=== PATIENT | male | born 1950 | race Caucasian/White ===

== ENCOUNTER 2023-02-14 09:07 | Outpatient (CLI) | payer MEDICARE, SELFPAY ==
--- NOTE | ~2023-02-14 | CT_ITS ---
Noncontrast CT scan of the left shoulder CLINICAL HISTORY: Preoperative evaluation TECHNIQUE: Axial noncontrast imaging of the left shoulder was performed. Coronal oblique and sagittal oblique reformatted images were constructed. Dose reduction technique was used on this scan by [employer] automated exposure control and iterative reconstruction technique. The dose-length product (DLP) was 515.79 mGy-cm. Findings: No acute fracture or dislocation seen. There is severe glenohumeral joint osteoarthritis. T here is a large inferomedial humeral head osteophyte. There is diffuse glenohumeral joint space narro wing with reactive sclerotic change and small areas of subchondral cystic change. There is mild AC bertin int degenerative change. Visualized musculature is grossly intact about the shoulder girdle. No soft tissue mass or fluid jocelin ection evident. No significant joint effusion identified. IMPRESSION: Severe glenohumeral joint osteoarthritis, as detailed above. Mild AC joint degenerative change. Reviewed, dictated and finalized at location .
== END 2023-02-14 09:08 | disposition home or self-care (01) ==
LOC: ANHIMG 09:12
PROVIDERS: Visit Provider Orthopaedic Surgery
DX: M19.012 Primary osteoarthritis, left shoulder (principal)
CPT/HCPCS: 73200

== ENCOUNTER 2023-02-25 10:03 | Outpatient (CLI) | payer MEDICARE, SELFPAY ==
--- NOTE | 2023-02-25 10:51 | ECG_ITS ---
Measurements Intervals Carbon Rate: 54 P: 60 PA: 210 QRS: -12 QRSD: 117 T: 19 QT: 471 QTc: 449 Interpretive Statements SINUS BRADYCARDIA WITH FIRST DEGREE AV BLOCK INCOMPLETE RIGHT BUNDLE BRANCH BLOCK BASELINE ARTIFACT- I, II, III, AVL, AVF BORDERLINE ECG NO PREVIOUS ECG AVAILABLE FOR COMPARISON Electronically Signed On 02-25-2023 11:29:29 CDT by Clayton Bales D.O.
[2023-02-25 11:11] LABS: Basophils Percent Auto 0.7 % (0.2-1.2); Eosinophils Absolute Auto 0.2 K/mm3 (0-0.3); Eosinophils Percent Auto 3.3 % (0-4.4); Hematocrit 39.4 % (42.0-52.0); Hemoglobin 13.6 g/dL (14.0-18.0); Immature Granulocyte Absolute 0.02 K/mm3 (0.00-0.031); Immature Granulocyte Percent A 0.3 % (0-0.5); Lymphocytes Absolute Auto 1.24 K/mm3 (0.9-3.2); Lymphocytes Percent Auto 21.3 % (18.3-44.2); Mean Corpuscular HGB Conc 34.5 g/dl (32-36); Mean Corpuscular Hemoglobin 32.9 pg (26-34); Mean Corpuscular Volume 95.4 fl (80-100); Mean Platelet Volume 9.8 fl (7.4-10.4); Monocytes Absolute Auto 0.5 K/mm3 (0.1-0.6); Monocytes Percent Auto 8.2 % (2.6-8.5); Neutrophils Absolute Auto 3.9 K/mm3 (1.3-6.7); Neutrophils Percent Auto 66.2 % (45.5-73.1); Platelet Count Result 168 k/mm3 (150-375); Red Blood Count 4.13 M/mm3 (4.6-6.20); Red Cell Distribution Width 13.4 % (11.5-14.5); White Blood Count 5.8 K/mm3 (4.5-10.0)
[2023-02-25 11:21] LABS: Anion Gap 10 mmol/L (8-16); Blood Urea Nitrogen 19 mg/dL (9-20); Calcium 9.1 mg/dL (8.4-10.2); Carbon Dioxide 28 mmol/L (22-30); Chloride 103 mmol/L (98-107); Estimated Glomerular Filt Rate > 60; Glucose 159 mg/dL (65-110); Potassium 3.8 mmol/L (3.4-5.0); Sodium 141 mmol/L (137-145)
== END 2023-02-25 10:04 | disposition home or self-care (01) ==
PROVIDERS: Anesthesiology; Visit Provider Orthopaedic Surgery
DX: M19.012 Primary osteoarthritis, left shoulder (principal); E11.9 Type 2 diabetes mellitus without complications; I10 Essential (primary) hypertension; Z01.818 Encounter for other preprocedural examination; I45.10 Unspecified right bundle-branch block; I44.0 Atrioventricular block, first degree
CPT/HCPCS: 36415; 80048; 85025; 87081; 93005

== ENCOUNTER 2023-04-22 00:51 | Day surgery (SDC) | payer MEDICARE, SELFPAY ==
[2023-02-25 10:14] VITALS: BMI 36.2
--- NOTE | 2023-02-25 10:35 | PC.NURSE ---
Report to the Outpatient Waiting Room, entrance under the green pavilion located off [facility], at time __0830 on date _03/19/23 . Planned Procedure Time: __1030 . Time changes happen often and if your time is changed the preop area will call you the afternoon before. - You and your visitor will be asked to self-screen and do not enter if you have any COVID symptoms. - A mask is optional within the hospital at this time. Patients may have clear liquids (water, carbonated beverages, clear teas, apple juice) until 3 hours prior to surgery with a maximum of 20 ounces. - No food from midnight until time of surgery - Infants may have breast milk until 4 hours before surgery, infant formula 6 hours prior to surgery. - Children will be allowed to drink immediately following surgery. If applicable, please bring a bottle or sippy cup to assist with drinking. Juice, water, soda, and popsicles are readily available. For infants on formula, please bring formula the day of surgery. Pacifiers are allowed. Take the following medications with a SIP of water the morning of surgery: __ATENOLOL,LEVOTHYROXINE DO NOT STOP ANY OF YOUR OTHER PRESCRIPTION MEDICATIONS PRIOR TO SURGERY ?EXCEPT THE FOLLOWING Medications to discontinue per physician ____ASPIRIN 7 DAYS PRE OP PER DR ABRAHAM.LAST DOSE 03/11/23. ALL VITAMINS AND SUPPLEMENTS 3 DAYS PRE OP.LAST DOSE 03/15/23 Please no make-up, nail slovenian, hairspray, perfume, deodorant, or body powder the day of surgery. No jewelry (including any body piercings) or valuables the day of surgery, leave them at home. Please take a shower or bath the night before, or the morning of, surgery with an antibacterial soap. Wear comfortable, loose fitting clothing. Children are encouraged to wear pajamas. - Jewelry must be removed prior to entering the operating room. Rings and piercings that are not removed may be cut off. - The hospital will not accept responsibility for valuables. - Please leave all valuables, including medications, at home the day of surgery. If you are going home after surgery, a licensed regional driver must drive you home. - NO public transportation without another adult if you receive anesthesia. - We recommend that an adult stay with you for 24 hours following discharge. - We also recommend that you do not drive, make important decision, drink alcoholic beverages, or take any drugs that were not prescribed by your health care provider for at least 24 hours after your discharge time. For Pediatric surgeries, we recommend two adults accompany the child home. Follow any additional instructions given to you from your surgeon. If you or anyone in your household have experienced Covid symptoms in the past week, please notify your surgeon or the nurse liaison at the phone number below for possible testing. VERBAL AND WRITTEN instructions given to _PATIENT AND JOSUE and asked if any additional questions and then verbalized understanding. Patient advised to call surgeon office or pre surgery nurse liaison [phone] if any additional questions.
[2023-02-25 10:51] VITALS: BP 144/81; PULSE 58; RESP 18; TEMP 36.6; O2SAT 98
--- NOTE | 2023-04-15 09:35 | PC.NURSE ---
Report to the Outpatient Waiting Room, entrance under the green pavilion located off [facility], at time _1000 on date __04/22/23 . Planned Procedure Time: __1200 . Time changes happen often and if your time is changed the preop area will call you the afternoon before. - You and your visitor will be asked to self-screen and do not enter if you have any COVID symptoms. - A mask is optional within the hospital at this time. Patients may have clear liquids (water, carbonated beverages, clear teas, apple juice) until 3 hours prior to surgery with a maximum of 20 ounces. - No food from midnight until time of surgery - Infants may have breast milk until 4 hours before surgery, infant formula 6 hours prior to surgery. - Children will be allowed to drink immediately following surgery. If applicable, please bring a bottle or sippy cup to assist with drinking. Juice, water, soda, and popsicles are readily available. For infants on formula, please bring formula the day of surgery. Pacifiers are allowed. Take the following medications with a SIP of water the morning of surgery: __ATENOLOL,LEVOTHYROXINE DO NOT STOP ANY OF YOUR OTHER PRESCRIPTION MEDICATIONS PRIOR TO SURGERY ?EXCEPT THE FOLLOWING Medications to discontinue per physician ___ASPIRIN 7 DAYS PRE OP PER DR ABRAHAM.LAST DOSE 04/14/23. ALL VIT/SUPP 3 DAYS PRE OP.LAST DOSE 04/18/23 Please no make-up, nail sudanese, hairspray, perfume, deodorant, or body powder the day of surgery. No jewelry (including any body piercings) or valuables the day of surgery, leave them at home. Please take a shower or bath the night before, or the morning of, surgery with an antibacterial soap. Wear comfortable, loose fitting clothing. Children are encouraged to wear pajamas. - Jewelry must be removed prior to entering the operating room. Rings and piercings that are not removed may be cut off. - The hospital will not accept responsibility for valuables. - Please leave all valuables, including medications, at home the day of surgery. If you are going home after surgery, a licensed chair car driver must drive you home. - NO public transportation without another adult if you receive anesthesia. - We recommend that an adult stay with you for 24 hours following discharge. - We also recommend that you do not drive, make important decision, drink alcoholic beverages, or take any drugs that were not prescribed by your health care provider for at least 24 hours after your discharge time. For Pediatric surgeries, we recommend two adults accompany the child home. Follow any additional instructions given to you from your surgeon. If you or anyone in your household have experienced Covid symptoms in the past week, please notify your surgeon or the nurse liaison at the phone number below for possible testing. Telephone instructions given to ___PATIENT and asked if any additional questions and then verbalized understanding. Patient advised to call surgeon office or pre surgery nurse liaison [phone] if any additional questions.
--- NOTE | 2023-04-15 09:40 | PC.NURSE ---
pt states only health history change from last interview on 02/25/23 was he developed cellulitis of the right leg. was treated with antibiotic.now resolved.
[2023-04-22] VITALS (10 sets, daily range): BP systolic 113–145; BP diastolic 51–72; PULSE 59–79; RESP 11–20; TEMP 36.3–37; O2SAT 95–100
--- NOTE | ~2023-04-22 | XR_ITS ---
EXAM: XR shoulder LT min 2V DATE: 04/22/2023 15:06 HISTORY: LT REVERSE TOTAL SHOULDER . COMPARISON: 02/11/2023; CT shoulder 02/14/2023. FINDINGS: Decreased mineralization. Uncomplicated appearing left shoulder arthroplasty hardware. No osseous fracture or dislocation. No lytic or blastic lesion. Joint spaces are maintained. No erosion or periosteal change. Postsurgical change in the soft tissues. No unexpected radiopaque foreign body. Left basilar airspace disease. IMPRESSION: Expected postsurgical changes, with no radiographic evidence of hardware related complication. Left basilar atelectasis/consolidation. Reviewed, dictated and finalized at location K. IMPRESSION: Expected postsurgical changes, with no radiographic evidence of hardware relate d complication. Left basilar atelectasis/consolidation.
--- NOTE | 2023-04-22 09:16 | WPDANESEPPF ---
Anes - Initial Pre Proc Eval Procedure: Operation Date: 04/22/23 12:00 Proposed Procedures p Left Reverse Total Shoulder Arthroplasty - Selvin Lozoya MD Date/Time: 04/22/23 09:16 Surgeon: Selvin Lozoya MD Pre Op Diagnosis: Prim O A Lt Shoulder Patient Data Age: 72 Gender: M Height: 1.83 m Weight: 121.3 kg Last Vital Signs Temp 36.6 C 02/25/23 10:51 Pulse 58 L 02/25/23 10:51 Resp 18 02/25/23 10:51 BP 144/81 H 02/25/23 10:51 Pulse Ox 98 02/25/23 10:51 O2 Del Method Room Air 02/25/23 10:51 Allergies Allergy/AdvReac Type Severity Reaction Status Date / Time No Known Allergies Allergy Verified 04/15/23 09:37 Home Medications Medication Instructions Recorded Confirmed Type aspirin 81 mg tablet,delayed 81 mg PO DAILY 02/11/23 04/15/23 History release (Adult Aspirin Regimen) atenolol 50 mg tablet 50 mg PO DAILY 02/11/23 04/15/23 History atorvastatin 20 mg tablet 20 mg PO DAILY 02/11/23 04/15/23 History furosemide 20 mg tablet 20 mg PO QAM 02/11/23 04/15/23 History levothyroxine 150 mcg capsule 150 mcg PO DAILY 02/11/23 04/15/23 History lisinopril 20 mg tablet 20 mg PO DAILY 02/11/23 04/15/23 History multivitamin (Daily Multi-Vitamin 1 tablet PO DAILY 02/11/23 04/15/23 History tablet) omega 8-fzk-yod-fish oil 60 mg-90 1 cap PO DAILY 02/11/23 04/15/23 History mg-500 mg capsule (Fish Oil) cholecalciferol (vitamin D3) 25 25 mcg PO DAILY 02/25/23 04/15/23 History mcg (1,000 unit) tablet famotidine 10 mg tablet 10 mg PO BID 03/11/23 04/15/23 History metformin 1,000 mg tablet 1,000 mg PO BID 03/11/23 04/15/23 History Patient hx anesthesia problems: none Family hx anesthesia problems: none Results Review: All pre-operative results and documents have been reviewed as part of the pre-operative evaluation. [facility] Past Medical History Medical History (Updated 04/22/23 @ 09:17 by Terence Resendez DO) Bruises easily Diabetes History of stress test Hyperlipidemia Hypertension Hypothyroidism PONV (postoperative nausea and vomiting) Surgical History Surgical History History of carpal tunnel release of both wrists (~2009) History of left knee replacement (~2014) History of right knee joint replacement (~2014) History of thymectomy (~2014) Hx of inguinal hernia surgery (~1997) Family History Family History Father Diabetes mellitus Colon cancer H/O heart bypass surgery Mother Chronic kidney disease Diabetes mellitus H/O heart bypass surgery Social History Social History Smoking status: Never smoker Alcohol intake: current Drinks per week: 2 Substance use: never Lack of Transportation: No Lack of Food: Never True Current Housing: I Have Housing Concerned About Future Housing: No Difficulty Paying Gas/Electric Bills: No Difficulty Paying for Meds: No Currently Unemployed: No Education: Trade/Vocational Certificate Difficulty w/ Childcare or Family Care: No Living arrangements: with family Spiritual care concerns: No Anes - Eval Final PreProcedure Day of Procedure 04/22/23 09:16 Patient weight: obese Heart: regular rate and rhythm Lungs: clear to auscultation Airway: Mallampati scale class II Neurological: alert and oriented Last oral intake: >/= 8 hours ASA classification: III Emergent: no Anesthetic plan: proceed Anesthesia type and monitoring: general ETT and standard monitoring Results Review: All pre-operative results and documents have been reviewed as part of the pre-operative evaluation. Informed Consent: The patient's anesthetic plan and its attendant risks and benefits were discussed with the patient/family/POA. Questions were solicited and answers provided to the satisfaction of the patient/family/POA.
--- NOTE | 2023-04-22 09:21 | WPDANESPNB ---
Anes - Peripheral Nerve Block Date/Time: 04/22/23 09:21 I have discussed with the patient/family/POA the placement of a peripheral nerve block for post-operative pain management, including associated risks, benefits, complications, and side effects. Alternative methods of post-operative analgesia were detailed. Questions were solicited and answers provided to the satisfaction of the patient/family/POA. Time-Out: A pre-procedural Time-Out was completed immediately before starting the procedure and confirmed: Patient Identification, Site, Procedure, Patient Position and the Availability of Requisite Equipment. Clinical Indications: Acute post-operative pain management requested by the operative surgeon. Nerve Block Insertion Note Anes-nerve block: interscalene left Patient position: supine Skin prep: chlorhexidine Needle: 22 gauge, stimulating, insulated echogenic needle. Needle length: 50 mm Technique: ultrasound Injectate: bupivacaine 0.5% with epi 5 mcg/ml (30cc- no epi) Observations: tolerated well Complications: none Procedure start time:: 1214 Procedure end time:: 1216
[2023-04-22 11:06] LABS: Glucose Point of Care 190 mg/dl (65-105)
[2023-04-22] MEDS: ACETAMINOPHEN 500 MG TABLET 1000 MG PO (11:10)
[2023-04-22] MEDS: TRANEXAMIC ACID 1,000MG/ISO100 1,000 MG/100 ML BAG 200 MG IVPB (11:15)
[2023-04-22] MEDS: LACTATED RINGERS 1,000 ML 30 ML IV CONT ×2 (11:15→14:50)
--- NOTE | 2023-04-22 12:03 | WPDHPUPDATE1 ---
History and Physical Update Update Date/Time: 04/22/23 12:03 History and Physical has been reviewed, including an updated exam of the patient. There are NO changes in the patient's condition. Risks, benefits, and alternatives have been discussed and questions answered. Patient agrees to proceed with procedure.
--- NOTE | 2023-04-22 12:08 | PM.IMHP ---
H&P: HPI History of Present Illness Date/Time: 04/22/23 12:08 Chief Complaint: Left shoulder pain. Details: Pre op note: Sabina 72-year-old male complains of severe chronic left shoulder pain. Presents for pre-op visit. Patient has been diagnosed with cellulitis on his right leg and has been on antibiotics since 03/04/23. He notes this has improved. Pain from his shoulder occurs throughout the day and night. Affecting his sleep and ability to get dressed. Also complains of stiffness. He is eager to get his shoulder fixed. Examination Overweight 72 y/o male. Pleasant. No distress. Shoulder examination painful. Coarse crepitus. Active elevation 80?, passive elevation 100?. Internal rotation to the hip. External rotation 30?. Neurovascular status intact. Deltoid fires. Good rotator cuff strength. Contralateral shoulder with mild stiffness and no significant pain. Good rotator cuff function. The cellulitis has resolved. Diagnostics Radiographs of the left shoulder show advanced glenohumeral arthritis with complete loss of the joint space and a large inferior humeral spur. Impression Advanced glenohumeral arthritis left shoulder with pronounced stiffness. Unable to raise the arm over 70-80 degrees. Essentially pseudo paralytic and quite stiff. Proceed with left reverse total shoulder arthroplasty. We discussed the risks, benefits, and alternatives to surgery. [facility] Past Medical History Medical History (Updated 04/22/23 @ 09:17 by Terence Resendez DO) Bruises easily Diabetes History of stress test Hyperlipidemia Hypertension Hypothyroidism PONV (postoperative nausea and vomiting) Surgical History Surgical History History of carpal tunnel release of both wrists (~2009) History of left knee replacement (~2014) History of right knee joint replacement (~2014) History of thymectomy (~2014) Hx of inguinal hernia surgery (~1997) Family History Family History Father Diabetes mellitus Colon cancer H/O heart bypass surgery Mother Chronic kidney disease Diabetes mellitus H/O heart bypass surgery Social History Social History Smoking status: Never smoker Alcohol intake: current Drinks per week: 2 Substance use: never Lack of Transportation: No Lack of Food: Never True Current Housing: I Have Housing Concerned About Future Housing: No Difficulty Paying Gas/Electric Bills: No Difficulty Paying for Meds: No Currently Unemployed: No Education: Trade/Vocational Certificate Difficulty w/ Childcare or Family Care: No Living arrangements: with family Spiritual care concerns: No Meds Home Medications and Allergies Home Medications Medication Instructions Recorded Confirmed Type aspirin 81 mg tablet,delayed 81 mg PO DAILY 02/11/23 04/15/23 History release (Adult Aspirin Regimen) atenolol 50 mg tablet 50 mg PO DAILY 02/11/23 04/15/23 History atorvastatin 20 mg tablet 20 mg PO DAILY 02/11/23 04/15/23 History furosemide 20 mg tablet 20 mg PO QAM 02/11/23 04/15/23 History levothyroxine 150 mcg capsule 150 mcg PO DAILY 02/11/23 04/15/23 History lisinopril 20 mg tablet 20 mg PO DAILY 02/11/23 04/15/23 History multivitamin (Daily Multi-Vitamin 1 tablet PO DAILY 02/11/23 04/15/23 History tablet) omega 2-qqo-rwt-fish oil 60 mg-90 1 cap PO DAILY 02/11/23 04/15/23 History mg-500 mg capsule (Fish Oil) cholecalciferol (vitamin D3) 25 25 mcg PO DAILY 02/25/23 04/15/23 History mcg (1,000 unit) tablet famotidine 10 mg tablet 10 mg PO BID 03/11/23 04/15/23 History metformin 1,000 mg tablet 1,000 mg PO BID 03/11/23 04/15/23 History Allergies Allergy/AdvReac Type Severity Reaction Status Date / Time No Known Allergies Allergy Verified 04/15/23 09:37 Vital Signs Vital Signs - 24 hr
[2023-04-22] MEDS: ceFAZolin 3 GM/D5W 100 ML 100 ML IVPB (12:21)
[2023-04-22] MEDS: VANCOMYCIN HCL 1,000 MG VIAL 1000 MG TOPICAL (14:12)
--- NOTE | 2023-04-22 14:56 | P.OP_ITS ---
Procedure Note - Detailed Date of Procedure 04/22/23 Pre-op Diagnosis Prim O A Lt Shoulder Post-op Diagnosis Same Procedure Performed Reverse total shoulder arthroplasty. Surgeon Selvin Lozoya MD Anesthesia General and Regional (Interscalene block.) Findings Moderate contracture required posterior capsule excision. Excellent bone quality. Mild deformity correction with 5 degree augment and slight anterior reaming correction. Subscapularis repaired. Description of Procedure The patient was given an interscalene block in the preoperative area. Preoperative antibiotics were given. The patient was transferred to the operating room and a general anesthetic was administered. The beach chair position was used at 45 degrees. All bony prominences were padded. The head was carefully stabilized on the [facility] tunnel heading inspector. A sterile prep and drape was performed in the usual manner with ChloraPrep. A longitudinal incision was created at the anterior shoulder just lateral to the deltopectoral interval. Hydrogen peroxide was placed on the incision and then rinsed after one minute. Careful dissection was performed to expose the interval and protect the cephalic vein. The vein was retracted medially. The upper border of the pectoralis was released. Anterior circumflex vessel branches were suture ligated. The biceps was tenodesed. A subscapularis tenotomy was performed. The inferior capsule was released, exposing the humeral head. Osteophytes were removed. Care was taken to stay on bone to protect the axillary nerve. The anatomic head cut was taken with the oscillating saw. The guide pin was placed, central drilling performed, and the broach trial inserted. The neck anteversion and inclination were carefully assessed. The cut protector was placed, and attention was turned to the glenoid. Retractors were placed. Releases were carried out for exposure. The subscapularis was mobilized, the inferior capsule and long head of triceps released, and the superior and middle glenohumeral ligaments released as well. Labral tissue was resected as needed. The sizing template was used to assess the baseplate position low on the glenoid. A guide pin was placed. Minimal reaming with the 5 degree reamer was used to accomplish a flat surface without violating the subchondral bone. Version was corrected according to preoperative templating. The boss was drilled, and the real component was impacted into position. Supplemental locking screws were placed centrally, superiorly, and inferiorly. The glenosphere was impacted into the taper. The proximal humerus was reamed for the inset component. The humeral components were trialed. The real humeral stem, tray, and insert were impacted into position. The shoulder was copiously irrigated periodically with pulsatile lavage. The shoulder was reduced and stability confirmed. 1 gram of Vancomycin powder was placed in the joint. The biceps tenodesis was incorporated with the pectoralis tendon repair. The deltopectoral space was reapproximated with number 1 Vicryl. The remaining tissue was closed with 0 Quill and 2-0 Quill running suture and steri-strips. A sterile silver occlusive dressing and shoulder immobilizer were placed. The patient was transferred to the recovery room. [employer] Should[employer] reverse TSA size 1 stem. +3 polyethylene insert. 5 degree baseplate. 36 +3 mm glenosphere. Estimated Blood Loss -100.0 Drains No Pathology None sent Complications No immediate complications Condition Stable Disposition PACU [facility] Billing Surgery - Charge Forward: Surgery Billing
[2023-04-22 14:58] LABS: Glucose Point of Care 181 mg/dl (65-105)
--- NOTE | 2023-04-22 16:20 | ADMGEN ---
This patient, Jairo Figueredo, was admitted to 3 [facility] Surg Room 326-01. Patient/family oriented to hospital policies and general routines including ID bracelet, bed and alarms, visiting hours, pain management, procedures, bathroom and other care routines, personal items, smoking policy, room service/diet, and visiting hours. Information on how to activate the Rapid Response Team has been discussed. Patient/Family are encouraged to report perceived risks to care and to ask questions if they do not understand what they are told or what they should do.
[2023-04-22] MEDS: SENNA/DOCUSATE SODIUM TABLET 2 TAB PO (17:50)
[2023-04-22] MEDS: metFORMIN HCL 500 MG TABLET 1000 MG PO (17:50)
[2023-04-22] MEDS: MELOXICAM 7.5 MG TABLET PO (17:50)
[2023-04-22] MEDS: ceFAZolin 1 GM/NS 50 ML 1 GM/50 ML BAG IVPB (17:51)
[2023-04-22] MEDS: FAMOTIDINE 10 MG TABLET PO (17:51)
[2023-04-22 20:15] LABS: Glucose Point of Care 252 mg/dl (65-105)
[2023-04-23 02:00] VITALS: BP 132/66; PULSE 68; RESP 16; TEMP 36.4; O2SAT 98
[2023-04-23 02:06] VITALS: PULSE 77; O2SAT 95
[2023-04-23] MEDS: ACETAMINOPHEN 500 MG TABLET 1000 MG PO (02:17)
[2023-04-23] MEDS: ceFAZolin 1 GM/NS 50 ML 1 GM/50 ML BAG IVPB ×2 (02:20→10:32)
[2023-04-23 06:00] VITALS: BP 121/66; PULSE 72; RESP 16; TEMP 36; O2SAT 98
[2023-04-23 06:15] LABS: Basophils Percent Auto 0.1 % (0.2-1.2); Eosinophils Percent Auto 0.1 % (0-4.4); Hematocrit 34.6 % (42.0-52.0); Hemoglobin 11.9 g/dL (14.0-18.0); Immature Granulocyte Absolute 0.11 K/mm3 (0.00-0.031); Immature Granulocyte Percent A 0.8 % (0-0.5); Lymphocytes Absolute Auto 1.09 K/mm3 (0.9-3.2); Mean Corpuscular HGB Conc 34.4 g/dl (32-36); Mean Corpuscular Hemoglobin 33.1 pg (26-34); Mean Corpuscular Volume 96.1 fl (80-100); Monocytes Absolute Auto 1.1 K/mm3 (0.1-0.6); Monocytes Percent Auto 8.4 % (2.6-8.5); Neutrophils Absolute Auto 11.2 K/mm3 (1.3-6.7); Neutrophils Percent Auto 82.6 % (45.5-73.1); Platelet Count Result 169 k/mm3 (150-375); Red Cell Distribution Width 12.9 % (11.5-14.5); White Blood Count 13.6 K/mm3 (4.5-10.0)
[2023-04-23] MEDS: LEVOTHYROXINE SODIUM 150 MCG TABLET PO (06:15)
[2023-04-23 06:26] LABS: Anion Gap 9 mmol/L (8-16); Blood Urea Nitrogen 20 mg/dL (9-20); Calcium 8.2 mg/dL (8.4-10.2); Carbon Dioxide 26 mmol/L (22-30); Chloride 103 mmol/L (98-107); Estimated CRCL calculation 68 ml/min; Estimated Glomerular Filt Rate 60; Glucose 177 mg/dL (65-110); Potassium 4.4 mmol/L (3.4-5.0); Sodium 138 mmol/L (137-145)
[2023-04-23 08:00] VITALS: BP 114/63; PULSE 66; RESP 18; TEMP 36.3; O2SAT 98
[2023-04-23] MEDS: ATORVASTATIN 20 MG TABLET PO (08:24)
[2023-04-23] MEDS: MULTIVITAMINS THERAPEUTIC TAB (*BKC) 1 TABLET PO (08:24)
[2023-04-23] MEDS: MELOXICAM 7.5 MG TABLET PO (08:24)
[2023-04-23] MEDS: metFORMIN HCL 500 MG TABLET 1000 MG PO (08:24)
[2023-04-23 08:25] VITALS: PULSE 72
[2023-04-23] MEDS: lisinopriL 20 MG TABLET PO (08:25)
[2023-04-23] MEDS: predniSONE 5 MG TABLET PO (08:25)
[2023-04-23] MEDS: FAMOTIDINE 10 MG TABLET PO (08:25)
[2023-04-23] MEDS: polyethylene glycoL 3350 17 GM POWD.PACK PO (08:25)
[2023-04-23] MEDS: atenoloL 50 MG TABLET PO (08:25)
[2023-04-23] MEDS: SENNA/DOCUSATE SODIUM TABLET 2 TAB PO (08:25)
[2023-04-23] MEDS: CHOLECALCIFEROL 1,000 UNITS TABLET 1000 UNITS PO (08:25)
--- NOTE | 2023-04-23 09:49 | P.PNAN_ITS ---
Anes - Prog Note Post-Op Date/Time: 04/23/23 09:49 Cardiovascular status: normal Respiratory status: normal Airway patency: baseline Mental status: baseline Post-Op hydration status: normal Vital Signs: Last Vital Signs Temp 97.3 F L 04/23/23 08:00 Pulse 72 04/23/23 08:25 Resp 18 04/23/23 08:00 BP 114/63 04/23/23 08:00 Pulse Ox 98 04/23/23 08:00 O2 Del Method Room Air 04/23/23 08:37 O2 Flow Rate 6 04/22/23 15:05 Pain Score (VAS): 0 I/O: Intake & Output 04/22/23 04/23/23 04/23/23 23:59 07:59 15:59 Intake Total 290 750 240 Balance 290 750 240 Laboratory Tests 04/23/23 05:54 04/23/23 05:54 04/22/23 04/22/23 04/22/23 11:05 11:06 14:55 WBC RBC Hgb Hct MCV MCH MCHC RDW Plt Count MPV Immature Gran % (Auto) Neut % (Auto) Lymph % (Auto) Cannon % (Auto) Eos % (Auto) Baso % (Auto) Lymph # (Auto) Cannon # (Auto) Eos # (Auto) Baso # (Auto) Abs Immat Gran (auto) Absolute Neuts (auto) Absolute Nucleated RBC Nucleated RBC % Sodium Potassium Chloride Carbon Dioxide Anion Gap BUN Creatinine Estim Creat Clear Calc Estimated GFR Glucose POC Capillary Glucose 190 H 181 H Calcium Blood Type A Positive Antibody Screen Negative 04/22/23 04/23/23 20:12 05:54 WBC 13.6 H RBC 3.60 L Hgb 11.9 L Hct 34.6 L MCV 96.1 MCH 33.1 MCHC 34.4 RDW 12.9 Plt Count 169 MPV 10.0 Immature Gran % (Auto) 0.8 H Neut % (Auto) 82.6 H Lymph % (Auto) 8.0 L Cannon % (Auto) 8.4 Eos % (Auto) 0.1 Baso % (Auto) 0.1 L Lymph # (Auto) 1.09 Cannon # (Auto) 1.1 H Eos # (Auto) 0.0 Baso # (Auto) 0.0 Abs Immat Gran (auto) 0.11 H Absolute Neuts (auto) 11.2 H Absolute Nucleated RBC 0.0 Nucleated RBC % 0.0 Sodium 138 Potassium 4.4 Chloride 103 Carbon Dioxide 26 Anion Gap 9 BUN 20 Creatinine 1.20 Estim Creat Clear Calc 68 Estimated GFR 60 Glucose 177 H POC Capillary Glucose 252 H Calcium 8.2 L Blood Type Antibody Screen Post-procedural complaints: none Patient Feedback: Patient satisfied with anesthetic care. block continues to provide pain relief
[2023-04-23] MEDS: oxyCODONE HCL (*CRX) 5 MG TAB IR PO (10:38)
--- NOTE | 2023-04-23 12:51 | PCPTNOTE ---
On 04/23/23, the student, [Melody Swan], provided care and completed [facility] hospital documentation on this patient. I have reviewed the student's documentation and agree with the findings.
--- NOTE | 2023-04-23 13:00 | PM.DS ---
DS: Admitting Diagnosis Discharge Date April 23, 2023 Admitting Diagnosis Rotator cuff arthropathy, left shoulder. DS: Discharge Diagnosis Discharge Diagnosis (1) Status post reverse total arthroplasty of left shoulder: Code(s): Z96.612 - Presence of left artificial shoulder joint Status: Acute DS: Summary Hospital Course Reason for hospitalization: Total shoulder arthroplasty. Hospital Course: Tolerated surgery well. Progressed appropriately with therapy. Status at Discharge Functional status at discharge: independent ambulation Overall status at discharge: patient is progressing back to baseline Time Spent with Patient Time attestation: Total time spent providing and/or coordinating discharge services: Exam Const: General: no acute distress Resp: Effort & Inspection: normal respiratory effort Skin: Other: Wound healing well. Mepilex dressing intact. No hematoma or drainage. Sling applied appropriately. Deltoid muscle fires. Axillary nerve sensation intact. Good furniture salesperson strength. No edema. radial pulse palpable. Neuro: Motor exam (neuro): 5/5 motor strength present throughout Sensory Exam: normal sensation Psych: Mental Status: mental status grossly normal Speech and movement: Normal speech and movement present DS: Data Data Completed and Pending Labs on day of discharge: Labs from last 24 hours 04/23/23 04/22/23 04/22/23 05:54 20:12 14:55 WBC 13.6 H RBC 3.60 L Hgb 11.9 L Hct 34.6 L MCV 96.1 MCH 33.1 MCHC 34.4 RDW 12.9 Plt Count 169 MPV 10.0 Immature Gran % (Auto) 0.8 H Neut % (Auto) 82.6 H Lymph % (Auto) 8.0 L Kerr % (Auto) 8.4 Eos % (Auto) 0.1 Baso % (Auto) 0.1 L Lymph # (Auto) 1.09 Kerr # (Auto) 1.1 H Eos # (Auto) 0.0 Baso # (Auto) 0.0 Abs Immat Gran (auto) 0.11 H Absolute Neuts (auto) 11.2 H Absolute Nucleated RBC 0.0 Nucleated RBC % 0.0 Sodium 138 Potassium 4.4 Chloride 103 Carbon Dioxide 26 Anion Gap 9 BUN 20 Creatinine 1.20 Estim Creat Clear Calc 68 Estimated GFR 60 Glucose 177 H POC Capillary Glucose 252 H 181 H Calcium 8.2 L Discharge Plan Discharge Patient Disposition: Home, Self-Care Discharge Instructions: See instruction sheet. Patient Instructions: Shoulder Arthroplasty (DC), Shoulder Immobilizer (DC) Discharge Medications: New sulfamethoxazole-trimethoprim [Bactrim DS] 800-160 mg tablet 1 tablet PO Q12H Qty: 14 0RF oxycodone-acetaminophen 5-325 mg tablet 1 - 2 tablet PO Q4-6H MDD 6 tablets PRN (Reason: pain) Qty: 30 0RF prednisone 5 mg tablet 5 mg PO DAILY Qty: 10 0RF meloxicam 7.5 mg tablet 7.5 mg PO .twice daily Qty: 60 0RF Continued multivitamin [Daily Multi-Vitamin] Tablet 1 tablet PO DAILY omega 2-hje-hdi-fish oil [Fish Oil] 60-90-500 mg capsule 1 cap PO DAILY atenolol 50 mg tablet 50 mg PO DAILY furosemide 20 mg tablet 20 mg PO QAM lisinopril 20 mg tablet 20 mg PO DAILY levothyroxine 150 mcg capsule 150 mcg PO DAILY atorvastatin 20 mg tablet 20 mg PO DAILY aspirin [Adult Aspirin Regimen] 81 mg tablet,delayed release (DR/EC) 81 mg PO DAILY famotidine 10 mg tablet 10 mg PO BID Patient Comments: TAKES BID metformin 1,000 mg tablet 1,000 mg PO BID Patient Comments: TAKES BID cholecalciferol (vitamin D3) 25 mcg (1,000 unit) Tablet 25 mcg PO DAILY
== END 2023-04-23 13:25 | disposition home or self-care (01) ==
LOC: ANHSURGERY 10:00 → ANH3MEDSUR 16:28
PROVIDERS: Visit Provider Orthopaedic Surgery
PROC: (CPT 23472; principal; 2023-04-22 12:00)
DX: M19.012 Primary osteoarthritis, left shoulder (principal); G89.18 Other acute postprocedural pain; E11.9 Type 2 diabetes mellitus without complications; I10 Essential (primary) hypertension; E78.5 Hyperlipidemia, unspecified; E66.9 Obesity, unspecified; Z68.35 Body mass index [BMI] 35.0-35.9, adult; Z79.82 Long term (current) use of aspirin; Z79.84 Long term (current) use of oral hypoglycemic drugs
CPT/HCPCS: 23472; 64415; 36415; 73030; 80048; 82948; 85025; 86850; 86900; 86901; 87081; 93005; 97110; 97161; 97165; 97530; 97535; A4565; A9270; C1776; J0171; J0690; J1100; J1170; J1885; J2250; J2270; J2405; J2704; J2710; J2795; J3010; J3370; J7120; J7512

== ENCOUNTER 2023-07-29 13:00 | Outpatient (CLI) | payer MEDICARE, SELFPAY ==
--- NOTE | ~2023-07-29 | CT_ITS ---
EXAMINATION: CT LE LT wo con DATE: 07/29/2023 13:59 INDICATION: Left knee osteoarthritis for preoperative planning. TECHNIQUE: High resolution computed tomography (CT) of the left lower extremity from the hip through the ankle was performed without intravenous contrast. Additional sagittal and coronal reconstructions were performed. Automated exposure control and iterative reconstruction technique were employed. The dose-length product was 2446.04 mGy-cm. COMPARISON: Breast dated 07/22/2023 FINDINGS: Bone alignment is normal. No fracture. Mild to moderate left hip osteoarthritis with posterior predom inant nonuniform joint space narrowing and cortical irregularity along the posterior articular surfac e of the left acetabulum. No left hip joint effusion. Large fat-containing left inguinal hernia which extends into the left hemiscrotum. Prostatomegaly. No pathologically enlarged left pelvic or inguina l lymphadenopathy. Tricompartmental osteoarthritis at the left knee with small marginal osteophytes i n all 3 compartments. There is moderate generalized fissuring the medial compartment on the current n onweightbearing imaging appears slightly more severe on the prior weightbearing radiographs. Subtle c hondrocalcinosis at the left knee most prominent on the medial meniscus. Tiny subarticular cystlike c hange along the weightbearing medial femoral condyle and medial tibial plateau consistent with overly ing high-grade chondromalacia. No left knee joint effusion. Small loose osteochondral body at the pos terior recess of the left knee. Newton-Stieda lesion with heterotopic ossification along the prox imal medial collateral ligament consistent with sequela of chronic sprain. Mild osteoarthritis at the left ankle and subtalar joints. There is subcutaneous edema about the left ankle and distal calf. No ankle joint effusion. There are a few small regions of increased fat within the medial head of the g astrocnemius muscle, medial side of the soleus muscle and more extensively within the left abductor a bductor longus muscle which could represent fatty atrophy or intramuscular lipomas. IMPRESSION: 1. Moderate to severe medial compartment predominant tricompartmental osteoarthritis at the left knee along with a Newton-Stieda lesion consistent with sequela of chronic medial collateral ligament sprain. 2. Mild to moderate osteoarthritis at the left hip. 3. Large fat-containing left inguinal hernia. 4. Prostatomegaly. Reviewed, dictated and finalized at location A. IMPRESSION: 1. Moderate to severe medial compartment predominant tricompartmental osteoarth ritis at the left knee along with a Newton-Stieda lesion consistent with se quela of chronic medial collateral ligament sprain. 2. Mild to moderate osteoarthritis at the left hip. 3. Large fat-containing left inguinal hernia. 4. Prostatomegaly.
[2023-07-29 14:34] LABS: Hematocrit 38.4 % (42.0-52.0); Hemoglobin 12.8 g/dL (14.0-18.0)
[2023-07-29 14:45] LABS: Albumin Level 4.4 g/dL (3.5-5.1); Estimated Glomerular Filt Rate > 60; Glucose 180 mg/dL (65-110)
[2023-07-29 15:43] LABS: Hemoglobin A1C 6.8 % (<5.7)
== END 2023-07-29 13:01 | disposition home or self-care (01) ==
PROVIDERS: Visit Provider Orthopaedic Surgery
DX: M17.12 Unilateral primary osteoarthritis, left knee (principal); E11.9 Type 2 diabetes mellitus without complications; E78.5 Hyperlipidemia, unspecified; K40.20 Bilateral inguinal hernia, without obstruction or gangrene, not specified as recurrent; M16.12 Unilateral primary osteoarthritis, left hip; N40.0 Benign prostatic hyperplasia without lower urinary tract symptoms
CPT/HCPCS: 36415; 73700; 82040; 82565; 82947; 83036; 85014; 85018

== ENCOUNTER 2023-09-26 13:34 | Outpatient (CLI) | payer MEDICARE, SELFPAY ==
[2023-09-26 14:52] LABS: Basophils Absolute Auto 0.1 K/mm3 (0.0-0.1); Basophils Percent Auto 0.6 % (0.2-1.2); Eosinophils Absolute Auto 0.2 K/mm3 (0-0.3); Eosinophils Percent Auto 2.4 % (0-4.4); Hematocrit 41.7 % (42.0-52.0); Immature Granulocyte Absolute 0.03 K/mm3 (0.00-0.031); Immature Granulocyte Percent A 0.4 % (0-0.5); Lymphocytes Absolute Auto 1.75 K/mm3 (0.9-3.2); Mean Corpuscular HGB Conc 33.6 g/dl (32-36); Mean Corpuscular Hemoglobin 32.2 pg (26-34); Mean Corpuscular Volume 95.9 fl (80-100); Mean Platelet Volume 9.8 fl (7.4-10.4); Monocytes Absolute Auto 0.6 K/mm3 (0.1-0.6); Monocytes Percent Auto 8.1 % (2.6-8.5); Neutrophils Absolute Auto 5.3 K/mm3 (1.3-6.7); Neutrophils Percent Auto 66.5 % (45.5-73.1); Platelet Count Result 190 k/mm3 (150-375); Red Blood Count 4.35 M/mm3 (4.6-6.20); White Blood Count 7.9 K/mm3 (4.5-10.0)
[2023-09-26 14:57] LABS: Albumin Level 4.7 g/dL (3.5-5.1)
[2023-09-26 15:01] LABS: Anion Gap 12 mmol/L (8-16); Blood Urea Nitrogen 20 mg/dL (9-20); Calcium 9.2 mg/dL (8.4-10.2); Carbon Dioxide 27 mmol/L (22-30); Chloride 103 mmol/L (98-107); Estimated Glomerular Filt Rate > 60; Glucose 123 mg/dL (65-110); Potassium 4.2 mmol/L (3.4-5.0); Sodium 142 mmol/L (137-145)
[2023-09-26 18:03] LABS: Urine Cotinine NEGATIVE
== END 2023-09-26 13:35 | disposition home or self-care (01) ==
PROVIDERS: Anesthesiology; Visit Provider Orthopaedic Surgery
DX: M17.12 Unilateral primary osteoarthritis, left knee (principal); E11.9 Type 2 diabetes mellitus without complications; Z01.818 Encounter for other preprocedural examination
CPT/HCPCS: 36415; 80048; 80307; 82040; 85025; 87081

== ENCOUNTER 2023-10-24 00:41 | Day surgery (SDC) | payer MEDICARE, SELFPAY ==
--- NOTE | 2023-09-26 13:57 | PC.NURSE ---
PRE-OP INSTRUCTIONS, PLEASE READ CAREFULLY Report to the Outpatient Waiting Room, entrance under the green pavilion located off [facility], at time _0600_ on date _10/24/23_. Planned Procedure Time: _0730_. PACK A SMALL OVERNIGHT BAG AND LEAVE IN THE CAR ALONG WITH YOUR WALKER Time changes happen often and if your time is changed the preop area will call you the afternoon before. - You and your visitor will be asked to self-screen and do not enter if you have any COVID symptoms. - A mask is optional within the hospital at this time. -VISITING HOURS 8AM-8PM Patients may have clear liquids (water, carbonated beverages, clear teas, apple juice) until 3 hours prior to surgery (0430 AM) with a maximum of 20 ounces. - No food from midnight until time of surgery Take the following medications with a SIP of water the morning of surgery: _ATENOLOL, LEVOTHYROXINE, & TYLENOL IF NEEDED_ DO NOT STOP ANY OF YOUR OTHER PRESCRIPTION MEDICATIONS PRIOR TO SURGERY ?EXCEPT THE FOLLOWING Medications to discontinue per DR. ABRAHAM - _ASPIRIN 7 DAYS PRIOR TO SURGERY, Date to take last dose 10/16/23_ Medications to discontinue per ANESTHESIA -_MULTIVITAMIN & SUPPLEMENTS 3 DAYS PRIOR TO SURGERY, Date to take last dose 10/20/23_ Please no make-up, nail icelandic, hairspray, perfume, deodorant, or body powder the day of surgery. No jewelry (including any body piercings) or valuables the day of surgery, leave them at home. Please take a shower or bath the night before, or the morning of, surgery with an antibacterial soap. Wear comfortable, loose fitting clothing. - Jewelry must be removed prior to entering the operating room. Rings and piercings that are not removed may be cut off. - The hospital will not accept responsibility for valuables. - Please leave all valuables, including medications, at home the day of surgery. If you are going home after surgery, a licensed delivery driver/customer service must drive you home. - NO public transportation without another adult if you receive anesthesia. - We recommend that an adult stay with you for 24 hours following discharge. - We also recommend that you do not drive, make important decision, drink alcoholic beverages, or take any drugs that were not prescribed by your health care provider for at least 24 hours after your discharge time. Follow any additional instructions given to you from your surgeon. If you or anyone in your household have experienced Covid symptoms in the past week, please notify your surgeon or the nurse liaison at the phone number below for possible testing. Instructions given to _PATIENT & SPOUSE_and asked if any additional questions and then verbalized understanding. Patient advised to call surgeon office or pre surgery nurse liaison [phone] if any additional questions.
[2023-09-26 14:12] VITALS: BP 144/82; PULSE 56; RESP 20; TEMP 37.2; O2SAT 100; BMI 36.0
--- NOTE | 2023-10-23 14:23 | WPDANESEPPF ---
Anes - Initial Pre Proc Eval Procedure: Operation Date: 10/24/23 07:30 Proposed Procedures p Left Total Knee Arthroplasty - Selvin Lozoya MD Date/Time: 10/23/23 14:23 Surgeon: Selvin Lozoya MD Pre Op Diagnosis: primary oa left knee Patient Data Age: 72 Gender: M Height: 1.83 m Weight: 120.4 kg Last Vital Signs Temp 37.2 C 09/26/23 14:12 Pulse 56 L 09/26/23 14:12 Resp 20 09/26/23 14:12 BP 144/82 H 09/26/23 14:12 Pulse Ox 100 09/26/23 14:12 O2 Del Method Room Air 09/26/23 14:12 Allergies Allergy/AdvReac Type Severity Reaction Status Date / Time No Known Allergies Allergy Verified 10/24/23 06:11 Home Medications Medication Instructions Recorded Confirmed Type aspirin 81 mg tablet,delayed 81 mg PO DAILY 02/11/23 10/24/23 History release (Adult Aspirin Regimen) atenolol 50 mg tablet 50 mg PO DAILY 02/11/23 10/24/23 History atorvastatin 20 mg tablet 20 mg PO DAILY 02/11/23 10/24/23 History furosemide 20 mg tablet 20 mg PO QAM 02/11/23 10/24/23 History levothyroxine 150 mcg capsule 150 mcg PO DAILY 02/11/23 10/24/23 History lisinopril 20 mg tablet 20 mg PO DAILY 02/11/23 10/24/23 History multivitamin (Daily Multi-Vitamin 1 tablet PO DAILY 02/11/23 10/24/23 History tablet) omega 0-vws-adf-fish oil 60 mg-90 1 cap PO DAILY 02/11/23 10/24/23 History mg-500 mg capsule (Fish Oil) cholecalciferol (vitamin D3) 25 25 mcg PO DAILY 02/25/23 10/24/23 History mcg (1,000 unit) tablet famotidine 10 mg tablet 10 mg PO BID 03/11/23 10/24/23 History metformin 1,000 mg tablet 1,000 mg PO BID 03/11/23 10/24/23 History acetaminophen 500 mg tablet 1,000 mg PO Q6H PRN Pain 09/26/23 10/24/23 History potassium citrate 10 mEq (1,080 10 meq PO TID 09/26/23 10/24/23 History mg) tablet,extended release Patient hx anesthesia problems: none Family hx anesthesia problems: none Results Review: All pre-operative results and documents have been reviewed as part of the pre-operative evaluation. [facility] Past Medical History Medical History (Updated 10/23/23 @ 14:24 by Terence Resendez DO) Bruises easily Diabetes History of stress test Hyperlipidemia Hypertension Hypothyroidism MATT (obstructive sleep apnea) CPAP PONV (postoperative nausea and vomiting) Surgical History Surgical History History of carpal tunnel release of both wrists (~2009) History of left knee replacement (~2014) History of right knee joint replacement (~2014) History of thymectomy (~2014) Hx of inguinal hernia surgery (~1997) Status post reverse total arthroplasty of left shoulder (~04/22/23) Family History Family History Father Diabetes mellitus Colon cancer H/O heart bypass surgery Mother Chronic kidney disease Diabetes mellitus H/O heart bypass surgery Social History Social History Smoking status: Never smoker Second hand tobacco smoke exposure: No Additional smoking assessment comments: PT DENIES ALL FORMS OF TOBACCO USE Alcohol intake: current Drinks per week: 2 Substance use: never Substance use type: does not use Lack of Transportation: No Lack of Food: Never True Current Housing: I Have Housing Concerned About Future Housing: No Difficulty Paying Gas/Electric Bills: No Difficulty Paying for Meds: No Currently Unemployed: No Education: Don't Know Difficulty w/ Childcare or Family Care: No Living arrangements: with family Spiritual care concerns: No Anes - Eval Final PreProcedure Day of Procedure 10/23/23 14:23 Patient weight: obese Heart: regular rate and rhythm Lungs: clear to auscultation Airway: Mallampati scale class II Neurological: alert and oriented Last oral intake: >/= 8 hours ASA classification: III Emergent: no Anesthetic plan: proceed Anesthesi
[2023-10-24] VITALS (20 sets, daily range): BP systolic 112–162; BP diastolic 57–76; PULSE 55–71; RESP 11–18; TEMP 36.2–36.5; O2SAT 96–100
--- NOTE | ~2023-10-24 | XR_ITS ---
EXAMINATION: [id number] DATE: 10/24/2023 10:12 INDICATION: Postoperative evaluation following left total knee arthroplasty. TECHNIQUE: Anteroposterior and lateral views of the left knee were obtained. COMPARISON: 07/22/2023 FINDINGS: Left total knee arthroplasty with patellar resurfacing appears well seated and in near anatomic align ment. No fractures identified. Again seen is chronic Newton-Stieda lesion with heterotopic ossic les along the medial epicondylar region of the left femur, likely sequela of chronic medial collatera l ligament sprain. Expected postoperative subcutaneous and intra-articular gas. IMPRESSION: 1. Left total knee arthroplasty, negative for postoperative purposes. 2. Newton-Stieda lesion consistent with sequela of chronic medial collateral ligament sprain. Reviewed, dictated and finalized at location A. N MARKETING ANALYST IMPRESSION: 1. Left total knee arthroplasty, negative for postoperative purposes. 2. Newton-Stieda lesion consistent with sequela of chronic medial collatera l ligament sprain.
[2023-10-24] MEDS: ACETAMINOPHEN 500 MG TABLET 1000 MG PO ×2 (06:20→17:37)
[2023-10-24] MEDS: LACTATED RINGERS 1,000 ML 30 ML IV CONT ×2 (06:40→09:56)
[2023-10-24 06:47] LABS: Glucose Point of Care 150 mg/dl (65-105)
[2023-10-24] MEDS: TRANEXAMIC ACID 1,000MG/ISO100 1,000 MG/100 ML BAG 200 MG IVPB (07:13)
--- NOTE | 2023-10-24 07:21 | WPDHPUPDATE1 ---
History and Physical Update Update Date/Time: 10/24/23 07:21 History and Physical has been reviewed, including an updated exam of the patient. There are NO changes in the patient's condition. Risks, benefits, and alternatives have been discussed and questions answered. Patient agrees to proceed with procedure.
[2023-10-24] MEDS: ceFAZolin 3 GM/D5W 100 ML 100 ML IVPB (07:34)
--- NOTE | 2023-10-24 07:34 | WPDANESPNB ---
Anes - Peripheral Nerve Block Date/Time: 10/24/23 07:34 I have discussed with the patient/family/POA the placement of a peripheral nerve block for post-operative pain management, including associated risks, benefits, complications, and side effects. Alternative methods of post-operative analgesia were detailed. Questions were solicited and answers provided to the satisfaction of the patient/family/POA. Time-Out: A pre-procedural Time-Out was completed immediately before starting the procedure and confirmed: Patient Identification, Site, Procedure, Patient Position and the Availability of Requisite Equipment. Clinical Indications: Acute post-operative pain management requested by the operative surgeon. Nerve Block Insertion Note Anes-nerve block: adductor canal left Patient position: supine Skin prep: chlorhexidine Needle: 22 gauge, stimulating, insulated echogenic needle. Needle length: 80 mm Technique: ultrasound Injectate: bupivacaine 0.5% with epi 5 mcg/ml (30cc - no epi) Observations: tolerated well Complications: none Procedure start time:: 724 Procedure end time:: 728
[2023-10-24] MEDS: GENTAMICIN BONE CEMENT REFOBACIN 1 EACH TOPICAL (09:28)
[2023-10-24 10:07] LABS: Glucose Point of Care 181 mg/dl (65-105)
--- NOTE | 2023-10-24 10:26 | W.PM.PROC2 ---
Procedure Note - Detailed Date of Procedure 10/24/23 Pre-op Diagnosis primary oa left knee Post-op Diagnosis Same Procedure Performed Total knee arthroplasty, left. Surgeon Selvin Lozoya MD Patient Support Tech Renuka Romo PA-C Anesthesia General and Regional (Subsartorial block.) Findings Excellent bone quality. Resections according to the preoperative template patient specific instruments. Description of Procedure Preoperative antibiotics were given. The limb was prepped and draped in the usual sterile fashion with a well-padded tourniquet high on the thigh. The limb was exsanguinated and the tourniquet inflated to 300 mmHg, during exposure and cementation. A longitudinal incision was created just medial to the patella. A trivector approach to the knee was performed. Arthrotomy was taken down through the joint capsule. No significant releases were initially taken. The femur was exposed and the F1 jig was applied, after removing distal cartilage. The jig was pinned and the distal cut carefully taken. Caliper measurements confirmed appropriate bony resections according to the preoperative templated plan. The F4 cutting jig for the femur was applied, at the standard rotation. The AP and anterior chamfer cuts were taken. The tibia was prepared using the T1 jig, after removing cartilage for the jig contact points. Proper alignment was checked with the alignment maria esther. The tibia was cut using the T1 2 degree varus guide. Gap balancing was performed. Gap measurements were taken and the knee was trialed. Excellent alignment and soft tissue balancing was confirmed. The posterior cruciate ligament was recessed along the proximal tibia. The patella was cut for resurfacing. Three lug holes were drilled. Meniscal remnants were removed. The trial components were assembled. Excellent range of motion and proper soft tissue balancing were confirmed throughout the full range of motion. Patellar tracking was excellent. The knee was copiously irrigated periodically throughout the procedure. The real implants were cemented into position. Excess cement was carefully removed. The wound was closed in layers with interrupted #1 Vicryl suture, #1 strata fix suture, 2-0 strata fix suture, 3-0 strata fix suture. Steri-Strips placed on the skin with the knee flexed. Sterile bulky dressing applied. The patient was brought to the recovery room in stable condition. There were no complications. Physician assistant laboratory director, Renuka Romo PA-C, required for surgery; including patient positioning, draping, tissue retraction, maintaining instrument position, cement removal, wound closure, and dressing placement. Implants Dmitry triathBrightLinen total knee arthroplasty. -1 patient specific guides. Cemented. Cruciate retaining. 9 mm insert. 38 mm aysmetric tritanium patella. Estimated Blood Loss 100 Drains No Complications No immediate complications Condition Stable Disposition PACU [facility] Billing Surgery - Charge Forward: Surgery Billing
--- NOTE | 2023-10-24 11:29 | SUR.PHASEI ---
1100: Patient meets PACU discharge criteria, unit bed unavailable at this time. Patient placed in extended recovery status.
--- NOTE | 2023-10-24 12:08 | SUR.PHASEII ---
1115 LUNCH DIET ORDERED; OT/PT CALLED; WILL COME TO WORK WITH PATIENT.
--- NOTE | 2023-10-24 12:38 | SUR.PHASEI ---
PATIENT EATING LUNCH.
--- NOTE | 2023-10-24 13:34 | SUR.PHASEI ---
PT HERE TO WORK WITH PATIENT.
--- NOTE | 2023-10-24 14:46 | SUR.PHASEI ---
OT HAS ALSO SEEN PATIENT. WAITING FOR BED ASSIGNMENT.
--- NOTE | 2023-10-24 15:29 | SUR.PHASEI ---
BED ASSIGNMENT IS 302; PATIENT AWARE; AWAITING CLEANING OF ROOM.
[2023-10-24] MEDS: ceFAZolin 2 GM/D5W 50 ML 2 GM/50 ML BAG IVPB (15:46)
--- NOTE | 2023-10-24 16:22 | SUR.PHASEI ---
ZOEY STOUT CALLED RE: BLOOD SUGAR CHECKS; ORDER PLACED.
[2023-10-24 16:47] LABS: Glucose Point of Care 262 mg/dl (65-105)
[2023-10-24] MEDS: MELOXICAM 7.5 MG TABLET PO (17:37)
[2023-10-24] MEDS: ASPIRIN 81 MG ENTERIC TABLET PO (17:37)
[2023-10-24] MEDS: FAMOTIDINE 10 MG TABLET PO (17:37)
[2023-10-24] MEDS: SENNA/DOCUSATE SODIUM TABLET 2 TAB PO (17:37)
[2023-10-24] MEDS: metFORMIN HCL 500 MG TABLET 1000 MG PO (17:37)
--- NOTE | 2023-10-24 18:03 | ADMGEN ---
This patient, Jairo Figueredo, was admitted to 3 [facility] Surg Room 302-01. Patient/family oriented to hospital policies and general routines including ID bracelet, bed and alarms, visiting hours, pain management, procedures, bathroom and other care routines, personal items, smoking policy, room service/diet, and visiting hours. Information on how to activate the Rapid Response Team has been discussed. Patient/Family are encouraged to report perceived risks to care and to ask questions if they do not understand what they are told or what they should do. Report from Rossi in pacu
[2023-10-24] MEDS: traMADol HCL (*CRX) 50 MG TABLET PO (20:51)
[2023-10-24 20:52] LABS: Glucose Point of Care 214 mg/dl (65-105)
--- NOTE | 2023-10-24 21:08 | PM.IMCN ---
Assessment and Plan Assessment and plan (1) Status post total left knee replacement: Code(s): Z96.652 - Presence of left artificial knee joint Status: Acute Assessment and Plan: primary management through Orthopedic team, anticipate discharge tomorrow. ambulate with assistance and up to chair apply cold flow use IS neurovasc checks - see order for intervals SCDs and TEDs resume diet pain management zofran PRN for nausea monitor labs in AM - CBC and BMP bowel regimen: docusate/senna, polyethylene glycol (2) Hypertension: Code(s): I10 - Essential (primary) hypertension Status: Acute Assessment and Plan: home atenolol, lisinopril continued. Continue to monitor blood pressure. (3) Hyperlipidemia: Code(s): E78.5 - Hyperlipidemia, unspecified Status: Acute Assessment and Plan: Home atorvastatin continued. No monitoring required. (4) Diabetes: Code(s): E11.9 - Type 2 diabetes mellitus without complications Status: Acute Assessment and Plan: hypoglycemia protocol POC blood glucose ACHS home medication resumed/held - metformin continued correct regimen ordered - low dose TIDWM and HS A1C 6.8 on 07/29/2023 (5) Hypothyroidism: Code(s): E03.9 - Hypothyroidism, unspecified Status: Acute Assessment and Plan: continue levothyroxine 150 mg daily p.o. No recent TSH on file but patient denies symptoms consistent with hyper or hypothyroidism. Plan Diet: diabetic diet GI Prophylaxis: famotidine DVT Prophylaxis: SCDs, Berto's, ASA 81 b.i.d. Lines: pIV Code Status: Full Code HPI Date of Consult Consult date: 10/25/23 Requesting Physician: Selvin Lozoya MD Primary Care Provider: Vladimir Blevins Consult Narrative Reason for consult: Medical Managment Narrative: Jairo Figueredo is a 72 year old male who presented here for a total left knee arthroplasty. Patient here for a left knee total arthroplasty which was done today by Darell WHITFIELD. Has previously had pain despite injections and now causing slight limp. XR showed severe varus arthritis with grade 4 changes medially, mild hypertrophic changes diffusely, and moderate deformity. has historically done well with contralateral knee replacement on the right done elsewhere. Patient has previously had postop nausea/vomiting, reports procedure went well and is not currently experiencing any queasiness or upset stomach. Reports improvement in pain, however feels block may be wearing off now. Reports no recent adjustments in his blood pressure or diabetes medications. States his blood sugar has been running slightly higher than usual due to the holidays. Otherwise has no concerns or complaints. Review of Systems Review of Systems: All systems reviewed & are unremarkable except as noted in HPI and below PMFSH Past Medical History Medical History (Updated 10/25/23 @ 00:40 by Rachael Benavides APRN) Bruises easily Diabetes History of stress test Hyperlipidemia Hypertension Hypothyroidism MATT (obstructive sleep apnea) CPAP PONV (postoperative nausea and vomiting) Surgical History Surgical History History of carpal tunnel release of both wrists (~2009) History of left knee replacement (~2014) History of right knee joint replacement (~2014) History of thymectomy (~2014) Hx of inguinal hernia surgery (~1997) Status post reverse total arthroplasty of left shoulder (~04/22/23) Family History Family History Father Diabetes mellitus Colon cancer H/O heart bypass surgery Mother Chronic kidney disease Diabetes mellitus H/O heart bypass surgery Social History Social History Smoking status: Never smoker Second hand tobacco smoke exposure: No Additional smoking asse
[2023-10-25] MEDS: ACETAMINOPHEN 500 MG TABLET 1000 MG PO ×2 (00:21→05:40)
[2023-10-25] MEDS: ceFAZolin 2 GM/D5W 50 ML 2 GM/50 ML BAG IVPB ×2 (00:21→10:09)
[2023-10-25 04:00] VITALS: BP 119/68; PULSE 60; RESP 16; TEMP 35.7; O2SAT 100
[2023-10-25] MEDS: LEVOTHYROXINE SODIUM 150 MCG TABLET PO (05:40)
[2023-10-25 06:59] LABS: Basophils Percent Auto 0.3 % (0.2-1.2); Eosinophils Absolute Auto 0.1 K/mm3 (0-0.3); Eosinophils Percent Auto 1.1 % (0-4.4); Hematocrit 33.5 % (42.0-52.0); Hemoglobin 11.2 g/dL (14.0-18.0); Immature Granulocyte Absolute 0.04 K/mm3 (0.00-0.031); Immature Granulocyte Percent A 0.4 % (0-0.5); Lymphocytes Absolute Auto 1.38 K/mm3 (0.9-3.2); Lymphocytes Percent Auto 12.1 % (18.3-44.2); Mean Corpuscular HGB Conc 33.4 g/dl (32-36); Mean Corpuscular Hemoglobin 32.8 pg (26-34); Mean Corpuscular Volume 98.2 fl (80-100); Mean Platelet Volume 9.9 fl (7.4-10.4); Monocytes Percent Auto 9.1 % (2.6-8.5); Neutrophils Absolute Auto 8.8 K/mm3 (1.3-6.7); Platelet Count Result 153 k/mm3 (150-375); Red Blood Count 3.41 M/mm3 (4.6-6.20); Red Cell Distribution Width 13.2 % (11.5-14.5); White Blood Count 11.4 K/mm3 (4.5-10.0)
[2023-10-25 07:18] LABS: Anion Gap 9 mmol/L (8-16); Blood Urea Nitrogen 22 mg/dL (9-20); Calcium 8.4 mg/dL (8.4-10.2); Carbon Dioxide 25 mmol/L (22-30); Chloride 106 mmol/L (98-107); Estimated CRCL calculation 74 ml/min; Estimated Glomerular Filt Rate > 60; Glucose 150 mg/dL (65-110); Potassium 3.9 mmol/L (3.4-5.0); Sodium 140 mmol/L (137-145)
[2023-10-25 07:35] LABS: Glucose Point of Care 159 mg/dl (65-105)
[2023-10-25 08:00] VITALS: BP 106/67; PULSE 59; RESP 16; TEMP 36; O2SAT 100
--- NOTE | 2023-10-25 08:24 | PM.DS ---
DS: Admitting Diagnosis Discharge Date 10/25/23 Admitting Diagnosis OA knee Left DS: Discharge Diagnosis Discharge Diagnosis (1) Status post total left knee replacement: Code(s): Z96.652 - Presence of left artificial knee joint Status: Acute Assessment and Plan: Postop day 1: Left total knee arthroplasty. Patient tolerated procedure well. No complications. Pain manageable with pain medication. No numbness or tingling. We had a lengthy discussion regarding postoperative wound care, limitations, expectations, and exercises. Patient shows good understanding. He has had initial physical therapy and is tolerating it well. DVT prophylaxis: 81 mg baby aspirin b.i.d. for 14 days. Pain medication: Percocet. Meloxicam. Prednisone. Patient has followup appointment with Dr. Lozoya in 3 weeks. (2) Orthopedic aftercare: Code(s): Z47.89 - Encounter for other orthopedic aftercare Status: Acute DS: Summary Hospital Course Reason for hospitalization: Total knee arthroplasty Hospital Course: Patient tolerated procedure well. Has had initial PT/OT. Status at Discharge Functional status at discharge: uses cane/walker Overall status at discharge: patient is progressing back to baseline Time Spent with Patient Time attestation: Total time spent providing and/or coordinating discharge services: Exam Narrative: 72-year-old overweight male. Resting comfortably in bed. Alert and oriented x3. No acute distress. Wearing compression socks bilaterally. Dressing dry and intact without drainage. Mild swelling. No ecchymosis. No erythema. No hematoma. Range of motion limited due to pain. Calf nontender. Good quad function. Neurologic status intact. No varicosities. Distal pulses palpable. DS: Data Data Completed and Pending Labs on day of discharge: Labs from last 24 hours 10/25/23 10/25/23 10/24/23 07:28 06:29 20:16 WBC 11.4 H RBC 3.41 L Hgb 11.2 L Hct 33.5 L MCV 98.2 MCH 32.8 MCHC 33.4 RDW 13.2 Plt Count 153 MPV 9.9 Immature Gran % (Auto) 0.4 Neut % (Auto) 77.0 H Lymph % (Auto) 12.1 L [place] % (Auto) 9.1 H Eos % (Auto) 1.1 Baso % (Auto) 0.3 Lymph # (Auto) 1.38 [place] # (Auto) 1.0 H Eos # (Auto) 0.1 Baso # (Auto) 0.0 Abs Immat Gran (auto) 0.04 H Absolute Neuts (auto) 8.8 H Absolute Nucleated RBC 0.0 Nucleated RBC % 0.0 Sodium 140 Potassium 3.9 Chloride 106 Carbon Dioxide 25 Anion Gap 9 BUN 22 H Creatinine 1.10 Estim Creat Clear Calc 74 Estimated GFR > 60 Glucose 150 H POC Capillary Glucose 159 H 214 H Calcium 8.4 10/24/23 10/24/23 16:41 10:04 WBC RBC Hgb Hct MCV MCH MCHC RDW Plt Count MPV Immature Gran % (Auto) Neut % (Auto) Lymph % (Auto) [place] % (Auto) Eos % (Auto) Baso % (Auto) Lymph # (Auto) [place] # (Auto) Eos # (Auto) Baso # (Auto) Abs Immat Gran (auto) Absolute Neuts (auto) Absolute Nucleated RBC Nucleated RBC % Sodium Potassium Chloride Carbon Dioxide Anion Gap BUN Creatinine Estim Creat Clear Calc Estimated GFR Glucose POC Capillary Glucose 262 H 181 H Calcium Discharge Plan Discharge Patient Disposition: Home, Self-Care Discharge Instructions: see green instruction sheets Stand Alone Forms: General Discharge Instructions Follow-up/Referrals: Renuka Romo PA [Physician Aircraft Maintenance Technician] - Discharge Medications: New aspirin 81 mg tablet,delayed release (DR/EC) 81 mg PO BID 14 Days Qty: 28 0RF prednisone 5 mg tablet 5 mg PO DAILY 21 Days Qty: 21 0RF oxycodone-acetaminophen 5-325 mg tablet 1 - 2 tablet PO Q4-6H MDD 6 PRN (Reason: pain) Qty: 30 0RF meloxicam 15 mg tablet 15 mg PO DAILY Qty: 30 0RF Rx Instructions: Cut in half. Take 1/2 in morning and 1/2 at night. Take with food. Stop if stomac
[2023-10-25 09:33] VITALS: PULSE 60
[2023-10-25] MEDS: MELOXICAM 7.5 MG TABLET PO (09:33)
[2023-10-25] MEDS: atenoloL 50 MG TABLET PO (09:33)
[2023-10-25] MEDS: ATORVASTATIN 20 MG TABLET PO (09:33)
[2023-10-25] MEDS: ASPIRIN 81 MG ENTERIC TABLET PO (09:33)
[2023-10-25] MEDS: lisinopriL 20 MG TABLET PO (09:33)
[2023-10-25] MEDS: metFORMIN HCL 500 MG TABLET 1000 MG PO (09:33)
[2023-10-25] MEDS: FAMOTIDINE 10 MG TABLET PO (09:33)
[2023-10-25] MEDS: SENNA/DOCUSATE SODIUM TABLET 2 TAB PO (09:34)
[2023-10-25] MEDS: predniSONE 5 MG TABLET PO (09:34)
[2023-10-25] MEDS: traMADol HCL (*CRX) 50 MG TABLET PO (09:35)
[2023-10-25] MEDS: CYCLOBENZAPRINE HCL 10 MG TABLET PO (10:09)
[2023-10-25 11:27] LABS: Glucose Point of Care 231 mg/dl (65-105)
--- NOTE | 2023-10-25 14:22 | PM.IMPN ---
Progress Note: A&P Assessment and Plan (1) Status post total left knee replacement: Code(s): Z96.652 - Presence of left artificial knee joint Status: Acute Assessment and Plan: 10/24/23: primary management through Orthopedic team, anticipate discharge tomorrow. ambulate with assistance and up to chair apply cold flow use IS neurovasc checks - see order for intervals SCDs and TEDs resume diet pain management zofran PRN for nausea monitor labs in AM - CBC and BMP bowel regimen: docusate/senna, polyethylene glycol 10/25/23: Patient is post op day 1 from left total knee arthroplasty Pain is well controlled, continue pain regimen PT/OT Plan for discharge today with Ortho (2) Hypertension: Code(s): I10 - Essential (primary) hypertension Status: Acute Assessment and Plan: 10/24/23: home atenolol, lisinopril continued. Continue to monitor blood pressure. 10/25/23: Blood pressure ranging 106/67-119/68 Continue current treatment plan (3) Hyperlipidemia: Code(s): E78.5 - Hyperlipidemia, unspecified Status: Acute Assessment and Plan: 10/24/23 Home atorvastatin continued. No monitoring required. 10/25/23: No change to current treatment plan. (4) Diabetes: Code(s): E11.9 - Type 2 diabetes mellitus without complications Status: Acute Assessment and Plan: 10/24/23: hypoglycemia protocol POC blood glucose ACHS home medication resumed/held - metformin continued correct regimen ordered - low dose TIDWM and HS A1C 6.8 on 07/29/2023 10/25/23: BG ranging 150-231 Continue with current treatment plan (5) Hypothyroidism: Code(s): E03.9 - Hypothyroidism, unspecified Status: Acute Assessment and Plan: 10/24/23 continue levothyroxine 150 mg daily p.o. No recent TSH on file but patient denies symptoms consistent with hyper or hypothyroidism. 10/25/23: Continue with home treatment plan Time Spent With Patient Time with patient: Greater than 35 minutes Subjective Date/time seen: 10/25/23 14:22 Interval history: This is a 72 year old male who presented to the hospital on10/24/23 for elective Left knee arthroplasty. He is post op day 1 today. Plan for discharge with orthopedic services today. On examination today patient is alert and oriented x3, sitting in the chair. is at the bedside. He states his pain is well controlled today. He denies any fever, chills, shortness of breath, chest pain, nausea, vomiting, diarrhea, or abdominal pain. Labs today revealed WBC 11.4, otherwise unremarkable. Plan for discharge today. Review of Systems Review of Systems: All systems reviewed & are unremarkable except as noted in HPI and below Constitutional: Constitutional: Reports as per HPI and Reports no additional constitutional complaints Eyes: Eyes: Reports as per HPI and Reports no additional eye complaints ENT: Reports system reviewed and no additional complaints, except as documented and Reports as per HPI Cardiovascular: Cardiovascular: Reports as per HPI and Reports no additional cardiovascular complaints Respiratory: Respiratory: Reports as per HPI and Reports no additional respiratory complaints Gastrointestinal: Gastrointestinal: Reports as per HPI and Reports no additional gastrointestinal complaints Genitourinary: Genitourinary: Reports no additional male genitourinary complaints and Reports as per HPI Musculoskeletal: Musculoskeletal: Reports no additional musculoskeletal complaints and Reports as per HPI Integumentary/Breasts: Skin/Breast: Reports system reviewed and no additional complaints, except as docu and Reports as per HPI Neurologic: Reports system reviewed and no additional complaints, except as documented and Reports as per HPI Psychiatric: Psychiatric: Reports no additional psychiatric complaints and Reports as per HPI Exam Narrative: General: In no acute distress, well
== END 2023-10-25 11:55 | disposition home or self-care (01) ==
LOC: ANHSURGERY 07:26 → ANH3MEDSUR 16:24
PROVIDERS: Physician Assistant Surgical; Visit Provider Orthopaedic Surgery
PROC: (CPT 27447; principal; 2023-10-24 07:30)
DX: M17.12 Unilateral primary osteoarthritis, left knee (principal); G89.18 Other acute postprocedural pain; E11.9 Type 2 diabetes mellitus without complications; I10 Essential (primary) hypertension; E78.5 Hyperlipidemia, unspecified; E03.9 Hypothyroidism, unspecified
CPT/HCPCS: 27447; 64447; 36415; 73560; 80048; 80307; 82040; 82948; 85025; 86850; 86900; 86901; 87081; 97110; 97116; 97161; 97165; A9270; C1713; C1776; J0171; J0690; J1100; J1885; J2250; J2270; J2405; J2704; J2795; J3010; J7120; J7512

== ENCOUNTER 2024-04-09 10:54 | Outpatient (CLI) | payer MEDICARE, SELFPAY ==
--- NOTE | ~2024-04-09 | XR_ITS ---
Left Shoulder Technique: AP and scapular Y views were obtained. Clinical History: Arthroplasty fall COMPARISON: 07/22/2023 Findings: No fracture or dislocation is seen. Stable right shoulder arthroplasty. Soft tissues are un remarkable. Impression: No acute abnormality. Stable shoulder arthroplasty. Reviewed, dictated and finalized at location . Impression: No acute abnormality. Stable shoulder arthroplasty.
--- NOTE | ~2024-04-09 | XR_ITS ---
Left Knee Technique: AP, lateral, and sunrise views were obtained. Clinical History: Arthroplasty follow-up COMPARISON: 12/11/2023 Findings: No fracture or dislocation is seen. Left knee arthroplasty in place, unchanged. There is ex tensive prepatellar soft tissue thickening or edema.. No joint effusion is seen. Impression: Left knee arthroplasty in place, without evidence of hardware convocation. Extensive prepatellar soft tissue thickening or edema. Correlate clinically. Reviewed, dictated and finalized at location M. Impression: Left knee arthroplasty in place, without evidence of hardware convocation. Extensive prepatellar soft tissue thickening or edema. Correlate clinically.
== END 2024-04-09 10:55 | disposition home or self-care (01) ==
LOC: ANHIMG 10:56
PROVIDERS: Visit Provider Orthopaedic Surgery
DX: M79.89 Other specified soft tissue disorders (principal); Z96.612 Presence of left artificial shoulder joint; Z96.652 Presence of left artificial knee joint
CPT/HCPCS: 73030; 73562